=== PATIENT | female | born 1940 | race Caucasian/White ===

== ENCOUNTER 2021-08-11 13:15 | Emergency (ER) | payer OTHER ==
[~2021-08-11 13:15] MED LIST: ANASTROZOLE1 M1 PO; ASPIRIN81 MG PO; K-DUR20 MEQ PO; LIPITOR 10MG TA10 MG PO; METOPROLOL SUCC50 MG PO; NORTRIPTYLINE H50 MG PO; OMEPRAZOLE40 MG PO; VITAMIN D2000 UNI1 PO; ZOLPIDEM 10MG T10 MG PO
[2021-08-11 15:06] LABS: BASOPHIL 0.5 % (0-2); HCT 34.7 % (37.0-47.0); INR 1.15 (0.9-1.2); LYMPHOCYTE 33.3 % (15-48); MCHC 31.7 g/dL (32.0-36.0); MCV 88.3 fL (78.0-100.0); MONOCYTE 6.8 % (0-12); MPV 11.1 fL (6.0-9.5); NEUTROPHIL 56.2 % (41-80); NRBC 0; PLT 137 K/uL (150-400); PROTHROMBIN TIME 14.1 SECONDS (11.8-13.4); PTT 29.4 SECONDS (24.4-34.7); RBC 3.93 M/uL (4.20-5.40); RDW 13.5 % (11.5-14.0); WBC 4.4 K/uL (4.0-10.5)
[2021-08-11 15:16] LABS: ALBUMIN 3.7 g/dL (3.4-5.0); BILIRUBIN - TOTAL 1.4 mg/dL (0.2-1.0); BUN/CREAT RATIO (CALC) 9.8 RATIO; CREATININE 0.61 mg/dL (0.51-0.95); GLOBULIN (CALCULATION) 3.9 g/dL; POTASSIUM 3.7 mmol/L (3.5-5.1); TOTAL PROTEIN 7.6 g/dL (6.4-8.2)
[2021-08-11] MEDS ORDERED: NORVASC 10MG TA10 MG PO (17:09)
[2021-08-11] MEDS ORDERED: ZESTRIL40 MG PO (17:09)
== END 2021-08-11 17:51 | disposition home or self-care (01) ==
LOC: FER 13:15
PROVIDERS: Emergency Medicine
DX: I10 Essential (primary) hypertension (principal); R01.1 Cardiac murmur, unspecified
CPT/HCPCS: 36415; 70450; 71045; 80053; 83880; 84484; 85025; 85610; 85730; 93005